=== PATIENT | male | born 1995 | race Hispanic/Latino ===

== ENCOUNTER 2017-12-24 01:11 | Inpatient (IN) | payer OTHER ==
[2017-12-24] MEDS ORDERED: Sodium Chloride 0.9% 1,000 ML IV ONE ×2 (01:38→03:37)
--- NOTE | 2017-12-24 01:38 | C.PDOC ---
History Of Present Illness The patient is brought to the ED by ambulance for evaluation after he sustained an injury while at work prior to arrival. Patient states a broken metal lamp fell onto his leg and he sustained a laceration to the medial aspect of his right ankle. Patient denies head injury, loss of consciousness or any other injuries at this time. Time Seen by Provider: 12/24/17 01:26 Chief Complaint (Nursing): Abnormal Skin Integrity History Per: Patient, EMS History/Exam Limitations: no limitations Onset/Duration Of Symptoms: Hrs Current Symptoms Are (Timing): Still Present Location Of Injury: Right: Ankle Quality Of Symptoms: Painful Severity: Moderate Pain Scale Rating Of: 5 Recent travel outside of the [place]: No Additional History Per: Patient Past Medical History Reviewed: Historical Data, Nursing Documentation, Vital Signs Vital Signs: Last Vital Signs Temp 99.2 F 12/24/17 01:21 Pulse 88 12/24/17 01:21 Resp 20 12/24/17 01:21 BP 123/75 12/24/17 01:21 Pulse Ox 99 12/24/17 01:56 - Medical History PMH: No Chronic Diseases Surgical History: No Surg Hx Family History: States: Unknown Family Hx - Social History Hx Alcohol Use: No Hx Substance Use: No - Immunization History Hx Tetanus Toxoid Vaccination: Yes Hx Influenza Vaccination: No Hx Pneumococcal Vaccination: No Review Of Systems Constitutional: Negative for: Fever, Chills Musculoskeletal: Positive for: Foot Pain, Other (right ankle pain , laceration) Skin: Positive for: Other (laceration to right ankle ). Negative for: Rash, Lesions, Jaundice, Bruising Neurological: Negative for: Weakness, Numbness, Other (head injury, LOC ) Physical Exam - Physical Exam Appears: Non-toxic Skin: Warm, Dry, Other (5cm large open laceration to medial aspect of right ankle. Evidence of partial cut to achile's tendon with small pulsatile bleeding noted ) Extremity: Normal ROM (toes ), Tenderness, Capillary Refill (less than 2 seconds ), No Deformity, Other (5 cm deep laceration, partial lac achile's tendon) Pulses: Left Dorsalis Pedis: Normal, Right Dorsalis Pedis: Normal Neurological/Psych: Oriented x3 Gait: Unable To Assess ED Course And Treatment - Laboratory Results Result Diagrams: 12/24/17 01:53 12/24/17 01:53 O2 Sat by Pulse Oximetry: 99 (on RA) Pulse Ox Interpretation: Normal Progress Note: Bloodwork ordered. Ancef IVPB and IV Fluids given. spoke with podiatry resident. will see the pt in the ed. resident at bedside, will suture, Disposition Discussed With : Majo Ortega Comment: acceptd the pt on his service and took over the care at 3:30 AM Doctor Will See Patient In The: ED Counseled Patient/Family Regarding: Studies Performed, Diagnosis - Disposition Referrals: Non [facility] Provider, [Primary Care Provider] - Disposition: HOSPITALIZED Disposition Time: 01:38 Condition: FAIR Forms: [employer] (Yakut) - Clinical Impression Clinical Impression: Laceration of ankle, Laceration of Achilles tendon - Scribe Statement The provider has reviewed the documentation as recorded by the Scribe (Peace Catalan) Provider Attestation: All medical record entries made by the Scribe were at my direction and personally dictated by me. I have reviewed the chart and agree that the record accurately reflects my personal performance of the history, physical exam, medical decision making, and the department course for this patient. I have also personally directed, reviewed, and agree with the discharge instructions and disposition.
[2017-12-24 01:58] LABS: BASO # 0.1 K/uL (0.0-0.2); BASO % 0.8 % (0.0-2.0); EOS % 0.4 % (0.0-4.0); HEMOGLOBIN 14.9 g/dL (12.0-18.0); LYMPH # 2.3 K/uL (1.0-4.3); LYMPH % 20.1 % (20.0-40.0); MEAN CELL VOLUME 87.9 fL (80.0-94.0); MEAN CORPUSCULAR HEMOGLOBIN 29.7 pg (27.0-31.0); MEAN CORPUSCULAR HGB CONC 33.8 g/dL (33.0-37.0); MEAN PLATELET VOLUME 10.9 fL (7.2-11.7); MONO % 9.3 % (0.0-10.0); NEUT # 7.8 K/uL (1.8-7.0); NEUT % 69.4 % (50.0-75.0); RBC 5.01 Mil/uL (4.40-5.90); RED CELL DISTRIBUTION WIDTH 14.5 % (11.5-14.5); WHITE BLOOD COUNT 11.2 K/uL (4.8-10.8)
[2017-12-24] MEDS ORDERED: ceFAZolin IV 2 gm in Dextrose 2 GM/50 ML BAG IVPB ONE (02:00)
[2017-12-24] MEDS ORDERED: Oxycodone/Acetaminophen 5/325 mg Tab ONE (02:29)
[2017-12-24] MEDS ORDERED: Lidocaine 2% MPF (5 ml) Inj ONE (02:30)
[2017-12-24] MEDS ORDERED: Oxycodone/Acetaminophen 5/325 mg Tab PO ONE (02:31)
[2017-12-24 03:01] LABS: BLOOD UREA NITROGEN 17 mg/dL (9-20); CALCIUM 9.3 mg/dl (8.6-10.4); GFR AFRICAN-AMERICAN > 60; GFR NON-AFRICAN AMERICAN > 60
[2017-12-24] MEDS ORDERED: Lidocaine 1%/Epinephrine 1:100000 30 ml vial IJ ONE (03:08)
[2017-12-24] MEDS ORDERED: Morphine 4 MG/ML VIAL ONE (03:23)
[2017-12-24] MEDS ORDERED: Sodium Chloride 0.9% 1,000 ML ONE (03:27)
[2017-12-24 03:45] LABS: HEMOGLOBIN 13.1 g/dL (12.0-18.0)
--- NOTE | 2017-12-24 04:25 | CP.PCM.CON ---
History of Present Illness - History of Present Illness History of Present Illness: Podiatry Consult Note - Dr. Ortega 22 year old male patient unremarkable PMHx seen and examined in ED for right leg laceration. Friend present at bedside. Patient states approximately 2 hours ago while at work, a large light fixture fell onto his leg, sustaining a laceration to the medial aspect of his right lower leg/ankle. (-)LOC. Patient states he has been actively bleeding since injury. Patient denies any other injuries at this time. Vaccines up to date per patient. Denies N/V/F/D/C/SOB/DAVIS/ dizziness. 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 Review of Systems - Review of Systems All systems: reviewed and no additional remarkable complaints except (as per HPI ) Past Patient History - Infectious Disease Hx of Infectious Diseases: None - Past Social History Smoking Status: Light Smoker < 10 Cigarettes Daily - PSYCHIATRIC Hx Substance Use: No - SURGICAL HISTORY Hx Surgeries: No - ANESTHESIA Hx Anesthesia: No Meds Allergies/Adverse Reactions: Allergies Allergy/AdvReac Type Severity Reaction Status Date / Time No Known Allergies Allergy Unverified 12/24/17 01:20 - Medications Medications: Current Medications Sodium Chloride (Sodium Chloride 0.9%) 1,000 mls @ 1,000 mls/hr IV .Q1H ONE Stop: 12/24/17 04:36 Last Admin: 12/24/17 03:30 Dose: 1,000 mls/hr Physical Exam - Constitutional Appears: Well, Non-toxic, No Acute Distress - Extremities Exam Additional comments: RLE focused physical exam VASC: DP and PT pulses palpable 2/4. CFT <3 seconds to digits x5. Temperature gradient warm to warm. No edema noted. NEURO: Gross and protective sensation intact. DERM: Laceration noted to medial aspect of lower leg/ankle measuring approximately 5cm x 2cm x 1cm extending down to muscle; active arteriolar bleeding present. Partially exposed Achilles tendon medially ORTHO: Pain on palpation noted periwound. Digital ROM present. Muscle strength 4 /5 for all dorsiflexors, plantarflexors, inverters, and everters. Negative Justice test. - Neurological Exam Neurological exam: Alert, Oriented x3 - Psychiatric Exam Psychiatric exam: Normal Affect, Normal Mood Results - Vital Signs Recent Vital Signs: Last Vital Signs Temp 99.2 F 12/24/17 01:21 Pulse 90 12/24/17 03:45 Resp 18 12/24/17 03:45 BP 105/64 12/24/17 03:45 Pulse Ox 99 12/24/17 03:31 - Labs Result Diagrams: 12/24/17 03:38 12/24/17 01:53 Labs: Laboratory Results - last 24 hr 12/24/17 12/24/17 12/24/17 01:53 01:53 03:38 WBC 11.2 H RBC 5.01 Hgb 14.9 13.1 Hct 44.1 37.8 MCV 87.9 MCH 29.7 MCHC 33.8 RDW 14.5 Plt Count 162 MPV 10.9 Neut % (Auto) 69.4 Lymph % (Auto) 20.1 Wise % (Auto) 9.3 Eos % (Auto) 0.4 Baso % (Auto) 0.8 Neut # (Auto) 7.8 H Lymph # (Auto) 2.3 Wise # (Auto) 1.0 H Eos # (Auto) 0.0 Baso # (Auto) 0.1 Sodium 141 Potassium 3.8 Chloride 105 Carbon Dioxide 27 Anion Gap 13 BUN 17 Creatinine 1.1 Est GFR ( Amer) > 60 Est GFR (Non-Af Amer) > 60 Random Glucose 92 Calcium 9.3 Assessment & Plan - Assessment and Plan (Free Text) Assessment: 22M with right medial leg laceration secondary to trauma Plan: Patient seen and evaluated Discussed with attending, Dr. Ortega H/h 14.9/44.1 Laceration flushed with copious amounts of betadine/saline solution Gelfoam used for hemostasis; bleeders ligated/cauterized as necessary Laceration closed using 3-0 vicryl, 4-0 vicryl, 3-0 prolene without incident Right leg dressed with xeroform, DSD Post-procedure H/h 13.1/37.8 Patient will be admitted to Med/Surg for obs -Continue abx -Pain control: Tylenol 650mg PO, Percocet 1 tab PO, Morphine 1g IV -Regular diet -RLE MRI -WB status: NWB RLE with crutches Podiatry will continue to follow
--- NOTE | 2017-12-24 09:59 | MRI ---
MRI right ankle History: Achilles tendon injury. Laceration. Comparison: None available. Technique: Multi-echo multiplanar sequences were performed through the right ankle without the use of intravenous contrast. Findings: Complete rupture of the Achilles tendon approximately 4.3 centimeters from its attachment on the posterior calcaneus. Proximal tendon lies approximately 8.7 centimeters from its attachment on the posterior calcaneus. Tendon gap between the proximal and distal tendon fragments measures 4.6 centimeters. Fluid and edema within the tendon gap. Plantar fascia is preserved. Sinus tarsi is preserved. Small ankle joint effusion. Scattered patchy areas of mild reactive bone marrow edema within the fibula, calcaneus, and navicular bone. Anterior extensor tendons are preserved. Medial flexor tendons are preserved. Flattening of the peroneus brevis tendon at the level of the ankle mortise suggestive for a partial split tear. Anterior and posterior tibiofibular ligaments appear grossly preserved. Moderate tenosynovitis of the flexor hallucis longus tendon sheath at the ankle mortise. Low-grade sprain of the deep fibers of the deltoid ligament. Impression: 1. Complete rupture of the Achilles tendon approximately 4.3 centimeters from its attachment on the posterior calcaneus. Proximal tendon lies approximately 8.7 centimeters from its attachment on the posterior calcaneus. Tendon gap between the proximal and distal tendon fragments measures 4.6 centimeters. Fluid and edema within the tendon gap. 2. Small ankle joint effusion. 3. Scattered patchy areas of mild reactive bone marrow edema within the fibula, calcaneus, and navicular bone. 4. Flattening of the peroneus brevis tendon at the level of the ankle mortise suggestive for a partial split tear. 5. Moderate tenosynovitis of the flexor hallucis longus tendon sheath at the ankle mortise. 6. Low-grade sprain of the deep fibers of the deltoid ligament.
[2017-12-24] MEDS: ceFAZolin IV 1 gm in Dextrose 1 GM/50 ML BAG IVPB SCH ×2 (10:51→17:50)
--- NOTE | 2017-12-24 14:42 | CP.PCM.HP ---
<Rand Rayne BASSETT - Last Filed: 12/24/17 15:13> History of Present Illness - History of Present Illness History of Present Illness: CC: "A lamp broke and fell on my foot" HPI: Patient is a 22 year old male patient who denies past medical history who was brought in by ambulance for an acute right foot/ankle injury. 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 The patient tried to catch it but the lamp struck his foot/medial ankle causing a laceration on impact. There was no loss of consciousness or head trauma. Patient reports he was told he looked pale at the time of injury. At the time of the incident, the pain was described as a 1/ 10 and has been "achy" since. This feeling starts at the back of the ankle and extends upward to the base of the calf muscle. Patient denies numbness and tingling in his right foot. Patient received morphine at the hospital and is controlling his pain. Patient reports last tetanus was 6-7 months ago given at an urgent care center. Patient was seen by podiatry team in ER for laceration repair of bleeding vessels at laceration site. 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 absent: Numbness, Tingling Additional comments: Aching pain right leg. - Integumentary Integumentary: Bleeding Lesions (right ankle laceration) - Neurological Neurological: absent: Dizziness, Syncope, Weakness - Endocrine Endocrine: absent: Fatigue Past Patient History - Infectious Disease Hx of Infectious Diseases: None - Past Medical History & Family History Past Medical History?: No - Past Social History Smoking Status: Light Smoker < 10 Cigarettes Daily - MUSCULOSKELETAL/RHEUMATOLOGICAL Hx Falls: No - PSYCHIATRIC Hx Substance Use: No - SURGICAL HISTORY Hx Surgeries: No - ANESTHESIA Hx Anesthesia: No Meds Allergies/Adverse Reactions: Allergies Allergy/AdvReac Type Severity Reaction Status Date / Time No Known Allergies Allergy Unverified 12/24/17 01:20 Physical Exam - Constitutional Appears: Well - Head Exam Head Exam: NORMAL INSPECTION - Eye Exam Eye Exam: EOMI, Normal appearance - ENT Exam ENT Exam: Mucous Membranes Moist - Respiratory Exam Respiratory Exam: Clear to Auscultation Bilateral, NORMAL BREATHING PATTERN - Cardiovascular Exam Cardiovascular Exam: +S1, +S2. absent: Diastolic murmur, Systolic Murmur - GI/Abdominal Exam GI & Abdominal Exam: Normal Bowel Sounds, Soft. absent: Tenderness - Extremities Exam Additional comments: Right foot splinted by podiatry Sensation intact in toes Normal ROM and color in toes intact sensation to proximal portion of right lower extremity - Neurological Exam Neurological exam: Alert - Psychiatric Exam Psychiatric exam: Normal Affect, Normal Mood - Skin Skin Exam: Dry, Normal Color, Warm Results - Vital Signs Recent Vital Signs: Last Vital Signs Temp 97.9 F 12/24/17 08:18 Pulse 65 12/24/17 08:18 Resp 20 12/24/17 08:18 BP 112/63 12/24/17 08:18 Pulse Ox 98 12/24/17 08:18 - Labs Result Diagrams: 12/24/17 03:38 12/24/17 01:53 Labs: Laboratory Results - last 24 hr 12/24/17 12/24/17 12/24/17 01:53 01:53 03:38 WBC 11.2 H RBC 5.01 Hgb 14.9 13.1 Hct 44.1 37.8 MCV 87.9 MCH 29.7 MCHC 33.8 RDW 14.5 Plt Count 162 MPV 10.9 Neut % (Auto) 69.4 Lymph % (Auto) 20.1 Hamblen % (Auto) 9.3 Eos % (Auto) 0.4 Baso % (Auto) 0.8 Neut # (Auto) 7.8 H Lymph # (Auto) 2.3 Hamblen # (Auto) 1.0 H Eos # (Auto) 0.0 Baso # (Auto) 0.1 Sodium 141 Potassium 3.8 Chloride 105 Carbon Dioxide 27 Anion Gap 13 BUN 17 Creatinine 1.1 Est GFR ( Amer) > 60 Est GFR (Non-Af Amer) > 60 Random Glucose 92 Calcium 9.3 Assessment & Plan - Assessment and Plan (Free Text) Assessment: 22 year old scott with right ankle laceration injury, complete right achilles rupture Right achilles tendon rupture Dr. Ortega, podiatry consulted- help appreciated Patient has right leg splinted by podiatry team Patient to go to OR on Wednesday 12/27 for tendon repair Patient to be non weight bearing to right lower extremity Preop studies ordered including coags, CXR, and EKG OR risk stratification pending results MRI right ankle (12/24/17): complete rupture of achilles tendon with tendon gap between proximal and distal tendon fragments measures 4.6cm. Fluid and edema with in tendon gap. Small ankle effusion. Flattenong of peroneus brevis tendon at level of ankle mortise suggestive for partial split tear. Low grade sprain of deep fibers of deltoid ligament. (see full report) Tylenol 650mg q6 for mild pain, percocet 5/325mg for moderate pain, Morphine 1mg IV q4 for severe pain Right ankle laceration laceration repaired by podiatry team in ER 12/24/17 continue cefazolin 1g q8 IVPB per podiatry team patient reports last tetanus shot 6-7 months ago Prophylactic measures lovenox 40mg sc daily zofran 1mg IVP q6 prn PT for crutch training <Lois Casey - Last Filed: 12/24/17 17:16> Results - Vital Signs Recent Vital Signs: Last Vital Signs Temp 98.7 F 12/24/17 16:02 Pulse 68 12/24/17 16:02 Resp 17 12/24/17 16:02 BP 121/69 12/24/17 16:02 Pulse Ox 98 12/24/17 16:02 - Labs Result Diagrams: 12/24/17 16:53 12/24/17 01:53 Labs: Laboratory Results - last 24 hr 12/24/17 12/24/17 12/24/17 01:53 01:53 03:38 WBC 11.2 H RBC 5.01 Hgb 14.9 13.1 Hct 44.1 37.8 MCV 87.9 MCH 29.7 MCHC 33.8 RDW 14.5 Plt Count 162 MPV 10.9 Neut % (Auto) 69.4 Lymph % (Auto) 20.1 Hamblen % (Auto) 9.3 Eos % (Auto) 0.4 Baso % (Auto) 0.8 Neut # (Auto) 7.8 H Lymph # (Auto) 2.3 Hamblen # (Auto) 1.0 H Eos # (Auto) 0.0 Baso # (Auto) 0.1 Sodium 141 Potassium 3.8 Chloride 105 Carbon Dioxide 27 Anion Gap 13 BUN 17 Creatinine 1.1 Est GFR ( Amer) > 60 Est GFR (Non-Af Amer) > 60 Random Glucose 92 Calcium 9.3 12/24/17 16:53 WBC 10.2 RBC 4.12 L Hgb 12.5 Hct 36.5 MCV 88.5 MCH 30.3 MCHC 34.3 RDW 14.7 H Plt Count 147 MPV 10.7 Neut % (Auto) 67.6 Lymph % (Auto) 24.1 Hamblen % (Auto) 7.3 Eos % (Auto) 0.5 Baso % (Auto) 0.5 Neut # (Auto) 6.9 Lymph # (Auto) 2.4 Hamblen # (Auto) 0.7 Eos # (Auto) 0.0 Baso # (Auto) 0.1 Sodium Potassium Chloride Carbon Dioxide Anion Gap BUN Creatinine Est GFR ( Amer) Est GFR (Non-Af Amer) Random Glucose Calcium Attending/Attestation - Attestation I have personally seen and examined this patient.: Yes I have fully participated in the care of the patient.: Yes I have reviewed all pertinent clinical information: Yes Notes (Text): 22 years old healthy male admitted for Achilles tendon rupture and right ankle laceration. Patient was seen with the resident. I agree with the documentation of the resident's assessment and the plan patient is going for surgery on wednesday
--- NOTE | 2017-12-24 15:31 | CP.PCM.PN ---
Subjective - Date & Time of Evaluation Date of Evaluation: 12/24/17 Time of Evaluation: 15:27 - Subjective Subjective: Podiatry Progress note: Dr. Ortega 22 year old male patient was evaluated at bedside for right Beaverdam's tendon rupture. Patient is AAOx3 and appears to be resting comfortably on the bed. Denies of any acute overnight events. Reports that the pain is well controlled. Denies of having recent F/N/V/C/SOB/CP/headache. No other pedal complains at this time. Objective - Vital Signs/Intake and Output Vital Signs (last 24 hours): Temp Pulse Resp BP Pulse Ox 97.9 F 65 20 112/63 98 12/24/17 08:18 12/24/17 08:18 12/24/17 08:18 12/24/17 08:18 12/24/17 14:00 Intake and Output: 12/24/17 12/24/17 06:59 18:59 Intake Total 470 Balance 470 - Medications Medications: Current Medications Acetaminophen (Tylenol 325mg Tab) 650 mg PO Q6 PRN PRN Reason: Pain, Mild (1-3) Enoxaparin Sodium (Lovenox) 40 mg SC DAILY ALMA DELIA Cefazolin Sodium/Dextrose (Ancef Iv 1 Gm Duplex) 1 gm in 50 mls @ 100 mls/hr IVPB Q8H [facility] PRN Reason: Protocol Last Admin: 12/24/17 10:51 Dose: 100 mls/hr Morphine Sulfate (Morphine) 1 mg IVP Q4H PRN PRN Reason: Pain, severe (8-10) Last Admin: 12/24/17 14:37 Dose: 1 mg Ondansetron HCl (Zofran Inj) 4 mg IVP Q6 PRN PRN Reason: Nausea/Vomiting Oxycodone/Acetaminophen (Percocet 5/325 Mg Tab) 1 tab PO Q4 PRN PRN Reason: Pain, moderate (4-7) Stop: 12/27/17 04:36 - Labs Labs: 12/24/17 03:38 12/24/17 01:53 - Constitutional Appears: Well, Non-toxic, No Acute Distress - Extremities Exam Additional comments: RLE focused physical exam VASC: DP and PT pulses palpable 2/4. CFT <3 seconds to digits x5. Temperature gradient warm to warm. No edema noted. NEURO: Gross and protective sensation intact. DERM: Sutures are intact with no dehiscence, no active bleeding, no pitting or non-pitting edema noted, no nadia-wound erythema, no clinical suspicion of active infection ORTHO: Pain on palpation noted periwound. Digital ROM present. Muscle strength 4 /5 for all dorsiflexors, plantarflexors, inverters, and everters. Negative Justice test. - Neurological Exam Neurological Exam: Alert, Awake, Oriented x3 - Psychiatric Exam Psychiatric exam: Normal Affect, Normal Mood Assessment and Plan - Assessment and Plan (Free Text) Assessment: 22 year old male with complete right Beaverdam's tendon rupture secondary to trauma Plan: Patient seen and evaluated Discussed with attending, Dr. Ortega Labs, vitals and charts reviewed - afebrile, no leukocytosis MRI - Complete rupture of the Beaverdam's tendon with gapping measuring approx 4 cm Dressing applied using xeroform, DSD Well padded posterior splint applied to the RLE Patient admitted to the hospital under Dr. Mooney's service -Continue abx -Pain control: Tylenol 650mg PO, Percocet 1 tab PO, Morphine 1g IV -Regular diet -WB status: NWB RLE with crutches CXR, EKG, and pre-op labs ordered Podiatry plans for Raiza's tendon repair on Wednesday (12/27) Patient will require medical optimization Podiatry will continue to follow
[2017-12-24 17:01] LABS: BASO # 0.1 K/uL (0.0-0.2); BASO % 0.5 % (0.0-2.0); EOS % 0.5 % (0.0-4.0); HEMOGLOBIN 12.5 g/dL (12.0-18.0); LYMPH # 2.4 K/uL (1.0-4.3); LYMPH % 24.1 % (20.0-40.0); MEAN CELL VOLUME 88.5 fL (80.0-94.0); MEAN CORPUSCULAR HEMOGLOBIN 30.3 pg (27.0-31.0); MEAN CORPUSCULAR HGB CONC 34.3 g/dL (33.0-37.0); MEAN PLATELET VOLUME 10.7 fL (7.2-11.7); MONO # 0.7 K/uL (0.0-0.8); MONO % 7.3 % (0.0-10.0); NEUT # 6.9 K/uL (1.8-7.0); NEUT % 67.6 % (50.0-75.0); RBC 4.12 Mil/uL (4.40-5.90); RED CELL DISTRIBUTION WIDTH 14.7 % (11.5-14.5); WHITE BLOOD COUNT 10.2 K/uL (4.8-10.8)
[2017-12-24 17:11] LABS: BLOOD UREA NITROGEN 10 mg/dL (9-20); CALCIUM 8.1 mg/dl (8.6-10.4); GFR AFRICAN-AMERICAN > 60; GFR NON-AFRICAN AMERICAN > 60
[2017-12-24 17:12] LABS: INR 1.1; PROTHROMBIN TIME 12.4 SECONDS (9.7-12.2)
--- NOTE | 2017-12-24 17:12 | RAD ---
HISTORY: plan for surgery COMPARISON: No prior. TECHNIQUE: Chest PA and lateral FINDINGS: LUNGS: No active pulmonary disease. PLEURA: No significant pleural effusion identified. No pneumothorax apparent. CARDIOVASCULAR: Normal. OSSEOUS STRUCTURES: No significant abnormalities. VISUALIZED UPPER ABDOMEN: Normal. OTHER FINDINGS: None. IMPRESSION: No active disease.
[2017-12-24] MEDS: Oxycodone/Acetaminophen 5/325 mg Tab PO PRN ×2 (17:15→22:58)
[2017-12-25] MEDS: ceFAZolin IV 1 gm in Dextrose 1 GM/50 ML BAG IVPB SCH ×3 (03:00→20:38)
--- NOTE | 2017-12-25 07:14 | CP.PCM.PN ---
Subjective - Date & Time of Evaluation Date of Evaluation: 12/25/17 Time of Evaluation: 07:11 - Subjective Subjective: Podiatry Progress note for attending Dr. Ortega 22 year old male patient was seen and evaluated at bedside for right Adrian's tendon rupture. Patient is not in acute distress. Patient is AAOx3 and appears to be resting comfortably on the bed. Patient denies of any acute overnight events. Patient states that he is not having pain in his lower extremities. Patient denies of having recent F/N/V/C/SOB/CP/headache. Patient denies other pedal complains at this time. Objective - Vital Signs/Intake and Output Vital Signs (last 24 hours): Temp Pulse Resp BP Pulse Ox 99.5 F 66 20 98/62 L 99 12/25/17 04:43 12/25/17 04:43 12/25/17 04:43 12/25/17 04:43 12/25/17 04:43 - Medications Medications: Current Medications Acetaminophen (Tylenol 325mg Tab) 650 mg PO Q6 PRN PRN Reason: Pain, Mild (1-3) Enoxaparin Sodium (Lovenox) 40 mg SC DAILY [facility]IA Cefazolin Sodium/Dextrose (Ancef Iv 1 Gm Duplex) 1 gm in 50 mls @ 100 mls/hr IVPB Q8H [facility] PRN Reason: Protocol Last Admin: 12/25/17 03:00 Dose: 100 mls/hr Morphine Sulfate (Morphine) 1 mg IVP Q4H PRN PRN Reason: Pain, severe (8-10) Last Admin: 12/24/17 14:37 Dose: 1 mg Ondansetron HCl (Zofran Inj) 4 mg IVP Q6 PRN PRN Reason: Nausea/Vomiting Oxycodone/Acetaminophen (Percocet 5/325 Mg Tab) 1 tab PO Q4 PRN PRN Reason: Pain, moderate (4-7) Stop: 12/27/17 04:36 Last Admin: 12/24/17 22:58 Dose: 1 tab - Labs Labs: 12/24/17 16:53 12/24/17 16:53 PT 12.4 SECONDS (9.7-12.2) H 12/24/17 16:53 INR 1.1 12/24/17 16:53 APTT 28 SECONDS (21-34) 12/24/17 16:53 - Constitutional Appears: Well, Non-toxic, No Acute Distress - Head Exam Head Exam: ATRAUMATIC, NORMOCEPHALIC - Extremities Exam Additional comments: RLE focused physical exam VASC: Cap refill < 3 seconds in all digits NEURO: Gross sensation intact. rest of the examination couldn't be done as the patient right LE is in posterior splint and the splint left intact. - Neurological Exam Neurological Exam: Alert, Awake, Oriented x3 - Psychiatric Exam Psychiatric exam: Normal Affect, Normal Mood Assessment and Plan - Assessment and Plan (Free Text) Assessment: 22 year old male with complete right Achilles's tendon rupture secondary to trauma Plan: Patient seen and evaluated at the bedside Discussed plan in details with attending, Dr. Ortega Labs, vitals and charts reviewed - afebrile, no leukocytosis MRI shows Complete rupture of the Adrian's tendon with gapping measuring approx 4 cm Right Posterior splint left intact. Patient to continue the antibiotic and the pain medication. patient to continue NWB RLE with crutches. To F/U medical preoperative clearance. Chest X-ray was done to the patient. Patient to be followed up in house by the podiatry team
[2017-12-25] MEDS: Oxycodone/Acetaminophen 5/325 mg Tab PO PRN ×2 (08:04→20:18)
[2017-12-25 09:05] LABS: BASO % 0.6 % (0.0-2.0); EOS # 0.1 K/uL (0.0-0.7); EOS % 1.2 % (0.0-4.0); HEMOGLOBIN 12.6 g/dL (12.0-18.0); LYMPH % 27.2 % (20.0-40.0); MEAN CELL VOLUME 88.8 fL (80.0-94.0); MEAN CORPUSCULAR HEMOGLOBIN 30.7 pg (27.0-31.0); MEAN CORPUSCULAR HGB CONC 34.6 g/dL (33.0-37.0); MEAN PLATELET VOLUME 11.1 fL (7.2-11.7); MONO # 0.8 K/uL (0.0-0.8); MONO % 10.2 % (0.0-10.0); NEUT # 4.5 K/uL (1.8-7.0); NEUT % 60.8 % (50.0-75.0); RBC 4.11 Mil/uL (4.40-5.90); RED CELL DISTRIBUTION WIDTH 14.1 % (11.5-14.5); WHITE BLOOD COUNT 7.4 K/uL (4.8-10.8)
[2017-12-25 09:14] LABS: ALB/GLOB RATIO 2.2 (1.0-2.1); ALBUMIN 3.8 g/dL (3.5-5.0); ALT/SGPT 33 U/L (21-72); AST/SGOT 33 U/L (17-59); BLOOD UREA NITROGEN 9 mg/dL (9-20); CALCIUM 8.8 mg/dl (8.6-10.4); GFR AFRICAN-AMERICAN > 60; GFR NON-AFRICAN AMERICAN > 60
[2017-12-25] MEDS: Enoxaparin 40 mg Syringe SC SCH (09:16)
--- NOTE | 2017-12-25 15:30 | CP.PCM.PN ---
<Kitty Martinezedwardcasie - Last Filed: 12/25/17 15:45> Subjective - Date & Time of Evaluation Date of Evaluation: 12/25/17 Time of Evaluation: 10:20 - Subjective Subjective: PGY 3 Medicine progress note- Dr. Casey's service Patient seen and examined in no acute distress. Patient admits to some tenderness in the posterior region of his right ankle. Patient reiterated the history of events- stating that he injured himself when a sharp metal object fell and cut into his Achilles region. Patient admits to pain with range of motion of affected foot. Patient denies headaches, subjective fevers or chills, nausea, vomiting, chest pain or palpitations at this time. Objective - Vital Signs/Intake and Output Vital Signs (last 24 hours): Temp Pulse Resp BP Pulse Ox 97.3 F L 63 20 110/69 98 12/25/17 07:00 12/25/17 07:00 12/25/17 07:00 12/25/17 07:00 12/25/17 07:00 - Medications Medications: Current Medications Acetaminophen (Tylenol 325mg Tab) 650 mg PO Q6 PRN PRN Reason: Pain, Mild (1-3) Enoxaparin Sodium (Lovenox) 40 mg SC DAILY [facility] Last Admin: 12/25/17 09:16 Dose: 40 mg Cefazolin Sodium/Dextrose (Ancef Iv 1 Gm Duplex) 1 gm in 50 mls @ 100 mls/hr IVPB Q8H [facility] PRN Reason: Protocol Last Admin: 12/25/17 10:14 Dose: 100 mls/hr Morphine Sulfate (Morphine) 1 mg IVP Q4H PRN PRN Reason: Pain, severe (8-10) Last Admin: 12/24/17 14:37 Dose: 1 mg Ondansetron HCl (Zofran Inj) 4 mg IVP Q6 PRN PRN Reason: Nausea/Vomiting Oxycodone/Acetaminophen (Percocet 5/325 Mg Tab) 1 tab PO Q4 PRN PRN Reason: Pain, moderate (4-7) Stop: 12/27/17 04:36 Last Admin: 12/25/17 08:04 Dose: 1 tab - Labs Labs: 12/25/17 08:51 12/25/17 08:51 PT 12.4 SECONDS (9.7-12.2) H 12/24/17 16:53 INR 1.1 12/24/17 16:53 APTT 28 SECONDS (21-34) 12/24/17 16:53 - Constitutional Appears: Non-toxic, No Acute Distress - Head Exam Head Exam: ATRAUMATIC, NORMAL INSPECTION, NORMOCEPHALIC - Eye Exam Eye Exam: EOMI, Normal appearance Pupil Exam: NORMAL ACCOMODATION - ENT Exam ENT Exam: Mucous Membranes Moist - Neck Exam Neck Exam: Full ROM - Respiratory Exam Respiratory Exam: NORMAL BREATHING PATTERN - Cardiovascular Exam Cardiovascular Exam: +S1, +S2 - GI/Abdominal Exam GI & Abdominal Exam: Soft, Normal Bowel Sounds - Extremities Exam Extremities Exam: Tenderness. absent: Full ROM, Pedal Edema Additional comments: limited range of motion of right foot. limited plantar flexion; sensation intact to temperature, soft touch - Back Exam Back Exam: Full ROM - Neurological Exam Neurological Exam: Alert, Awake, Oriented x3 - Psychiatric Exam Psychiatric exam: Normal Affect, Normal Mood - Skin Skin Exam: Normal Color, Warm Assessment and Plan - Assessment and Plan (Free Text) Assessment: 22 year old male with right ankle laceration injury, complete right Achilles rupture Right Achilles tendon rupture Dr. Ortega, Community Organization Worker consulted- F/U recommendations Right leg splinted by podiatry team Patient to go to OR on Wednesday 12/27 for tendon repair Patient-non weight bearing with right lower extremity Preoperative studies: CXR- no active disease. EKG- NSR with premature supraventricular complexes. Repeat EKG. INR 1.1 MRI right ankle (12/24/17): complete rupture of Achilles tendon with tendon gap between proximal and distal tendon fragments measures 4.6cm. Fluid and edema with in tendon gap. Small ankle effusion. Flattening of peroneus brevis tendon at level of ankle mortise suggestive for partial split tear. Low grade sprain of deep fibers of deltoid ligament. (see full report) Tylenol 650mg q6 for mild pain, Percocet 5/325mg for moderate pain, Morphine 1mg IV q4 for severe pain Right ankle laceration Laceration repaired by podiatry team in ER 12/24/17 Continue cefazolin 1g q8 IVPB per podiatry team Patient reports last tetanus shot 6-7 months ago Prophylactic measures Lovenox 40mg sc daily Zofran 1mg IVP q6 prn Physical therapy for crutch training GI prophylaxis not currently indicated <Lois Casey - Last Filed: 12/26/17 07:17> Objective - Vital Signs/Intake and Output Vital Signs (last 24 hours): Temp Pulse Resp BP Pulse Ox 97.8 F 95 H 20 133/79 97 12/25/17 23:50 12/25/17 23:50 12/25/17 23:50 12/25/17 23:50 12/25/17 23:50 - Medications Medications: Current Medications Acetaminophen (Tylenol 325mg Tab) 650 mg PO Q6 PRN PRN Reason: Pain, Mild (1-3) Enoxaparin Sodium (Lovenox) 40 mg SC DAILY [facility] Last Admin: 12/25/17 09:16 Dose: 40 mg Cefazolin Sodium/Dextrose (Ancef Iv 1 Gm Duplex) 1 gm in 50 mls @ 100 mls/hr IVPB Q8H [facility] PRN Reason: Protocol Last Admin: 12/26/17 01:58 Dose: 100 mls/hr Morphine Sulfate (Morphine) 1 mg IVP Q4H PRN PRN Reason: Pain, severe (8-10) Last Admin: 12/24/17 14:37 Dose: 1 mg Ondansetron HCl (Zofran Inj) 4 mg IVP Q6 PRN PRN Reason: Nausea/Vomiting Oxycodone/Acetaminophen (Percocet 5/325 Mg Tab) 1 tab PO Q4 PRN PRN Reason: Pain, moderate (4-7) Stop: 12/27/17 04:36 Last Admin: 12/25/17 20:18 Dose: 1 tab - Labs Labs: 12/25/17 08:51 12/25/17 08:51 PT 12.4 SECONDS (9.7-12.2) H 12/24/17 16:53 INR 1.1 12/24/17 16:53 APTT 28 SECONDS (21-34) 12/24/17 16:53 Attending/Attestation - Attestation I have personally seen and examined this patient.: Yes I have fully participated in the care of the patient.: Yes I have reviewed all pertinent clinical information, including history, physical exam and plan: Yes Notes (Text): Seen and examined with the resident. He has no complain,His ankle is covered with dressing and splint .His toes are pink,intact senation. Right Achilles's tendon rupture secondary to trauma [place],NWB as per podiatry going for surgery on Wednesday Pt is a 22 years old healthy male ,has no fever,no leukocytosis,chest x ray clear,EKG shows premature supraventricular complexes.Mostly its benign. Can be due to stress .I will repeat his EKG
[2017-12-26] MEDS: ceFAZolin IV 1 gm in Dextrose 1 GM/50 ML BAG IVPB SCH ×3 (01:58→18:26)
--- NOTE | 2017-12-26 07:49 | CP.PCM.PN ---
Subjective - Date & Time of Evaluation Date of Evaluation: 12/26/17 Time of Evaluation: 07:46 - Subjective Subjective: Podiatry Progress note for attending Dr. Ortega 22 year old male patient was seen and evaluated at bedside for right Achilles tendon rupture. Patient is AAOx3 and is not in acute distress.Patient appears to be resting comfortably on the bed. Patient denies of any acute overnight events. Patient states that his pain is well controlled by medications. Patient denies any recent F/N/V/C/SOB/CP/headache. Patient denies other pedal complains at this time. Objective - Vital Signs/Intake and Output Vital Signs (last 24 hours): Temp Pulse Resp BP Pulse Ox 97.8 F 95 H 20 133/79 97 12/25/17 23:50 12/25/17 23:50 12/25/17 23:50 12/25/17 23:50 12/25/17 23:50 - Medications Medications: Current Medications Acetaminophen (Tylenol 325mg Tab) 650 mg PO Q6 PRN PRN Reason: Pain, Mild (1-3) Enoxaparin Sodium (Lovenox) 40 mg SC DAILY [facility] Last Admin: 12/25/17 09:16 Dose: 40 mg Cefazolin Sodium/Dextrose (Ancef Iv 1 Gm Duplex) 1 gm in 50 mls @ 100 mls/hr IVPB Q8H [facility] PRN Reason: Protocol Last Admin: 12/26/17 01:58 Dose: 100 mls/hr Morphine Sulfate (Morphine) 1 mg IVP Q4H PRN PRN Reason: Pain, severe (8-10) Last Admin: 12/24/17 14:37 Dose: 1 mg Ondansetron HCl (Zofran Inj) 4 mg IVP Q6 PRN PRN Reason: Nausea/Vomiting Oxycodone/Acetaminophen (Percocet 5/325 Mg Tab) 1 tab PO Q4 PRN PRN Reason: Pain, moderate (4-7) Stop: 12/27/17 04:36 Last Admin: 12/25/17 20:18 Dose: 1 tab - Labs Labs: 12/25/17 08:51 12/25/17 08:51 PT 12.4 SECONDS (9.7-12.2) H 12/24/17 16:53 INR 1.1 12/24/17 16:53 APTT 28 SECONDS (21-34) 12/24/17 16:53 - Constitutional Appears: Well, Non-toxic, No Acute Distress - Head Exam Head Exam: ATRAUMATIC, NORMOCEPHALIC - Extremities Exam Additional comments: RLE focused physical exam VASC: Cap refill < 3 seconds in all digits NEURO: Gross sensation intact. rest of the examination couldn't be done as the patient right LE is in posterior splint and the splint left intact. - Neurological Exam Neurological Exam: Alert, Awake, Oriented x3 - Psychiatric Exam Psychiatric exam: Normal Affect, Normal Mood Assessment and Plan - Assessment and Plan (Free Text) Assessment: 22 year old male with complete right Achilles's tendon rupture secondary to trauma Plan: Patient seen and evaluated at the bedside Discussed plan in details with attending, Dr. Ortega Labs, vitals and charts reviewed - afebrile, no leukocytosis MRI shows Complete rupture of the Achilles tendon with gapping measuring approximately 4 cm Right Posterior splint left intact. Patient to continue the antibiotic and the pain medication. patient to continue NWB RLE with crutches. To F/U medical preoperative clearance. Chest X-ray was done to the patient. Patient to be followed up in house by the podiatry team
[2017-12-26 08:19] LABS: BASO % 0.8 % (0.0-2.0); EOS # 0.1 K/uL (0.0-0.7); EOS % 1.9 % (0.0-4.0); HEMOGLOBIN 12.5 g/dL (12.0-18.0); LYMPH # 1.6 K/uL (1.0-4.3); LYMPH % 28.6 % (20.0-40.0); MEAN CELL VOLUME 88.1 fL (80.0-94.0); MEAN CORPUSCULAR HEMOGLOBIN 30.8 pg (27.0-31.0); MEAN CORPUSCULAR HGB CONC 34.9 g/dL (33.0-37.0); MEAN PLATELET VOLUME 10.8 fL (7.2-11.7); MONO # 0.4 K/uL (0.0-0.8); MONO % 7.5 % (0.0-10.0); NEUT # 3.5 K/uL (1.8-7.0); NEUT % 61.2 % (50.0-75.0); NRBC % 0.1 % (0.0-2.0); RBC 4.07 Mil/uL (4.40-5.90); RED CELL DISTRIBUTION WIDTH 14.3 % (11.5-14.5); WHITE BLOOD COUNT 5.8 K/uL (4.8-10.8)
[2017-12-26 08:39] LABS: ALB/GLOB RATIO 2.1 (1.0-2.1); ALBUMIN 3.8 g/dL (3.5-5.0); ALT/SGPT 25 U/L (21-72); AST/SGOT 32 U/L (17-59); BLOOD UREA NITROGEN 8 mg/dL (9-20); CALCIUM 8.8 mg/dl (8.6-10.4); GFR AFRICAN-AMERICAN > 60; GFR NON-AFRICAN AMERICAN > 60
[2017-12-26] MEDS: Enoxaparin 40 mg Syringe SC SCH (09:36)
--- NOTE | 2017-12-26 14:31 | CP.PCM.PN ---
Subjective - Date & Time of Evaluation Date of Evaluation: 12/26/17 Time of Evaluation: 09:22 - Subjective Subjective: PGY 3 Med Progress Note- Dr. Casey's service Patient seen and examined in no acute distress. When asked about any prior cardiac history, patient denied. Patient states that he does smoke from tiem to time. He currently smokes 5-6 cigarettes at a time. He states that he has smoked upwards of a pack for a day in the past off and on. He has been smoking for approximately 5 years. He denies subjective fevers or chills, dyspnea, chest pain, palpitations, headaches, nausea, vomiting, diarrhea or constipation at this time. Objective - Vital Signs/Intake and Output Vital Signs (last 24 hours): Temp Pulse Resp BP Pulse Ox 97.8 F 61 20 117/71 98 12/26/17 07:00 12/26/17 07:00 12/26/17 07:00 12/26/17 07:00 12/26/17 07:00 - Medications Medications: Current Medications Acetaminophen (Tylenol 325mg Tab) 650 mg PO Q6 PRN PRN Reason: Pain, Mild (1-3) Last Admin: 12/26/17 12:13 Dose: 650 mg Enoxaparin Sodium (Lovenox) 40 mg SC DAILY [facility] Last Admin: 12/26/17 09:36 Dose: 40 mg Cefazolin Sodium/Dextrose (Ancef Iv 1 Gm Duplex) 1 gm in 50 mls @ 100 mls/hr IVPB Q8H [facility] PRN Reason: Protocol Last Admin: 12/26/17 09:36 Dose: 100 mls/hr Morphine Sulfate (Morphine) 1 mg IVP Q4H PRN PRN Reason: Pain, severe (8-10) Last Admin: 12/24/17 14:37 Dose: 1 mg Ondansetron HCl (Zofran Inj) 4 mg IVP Q6 PRN PRN Reason: Nausea/Vomiting Oxycodone/Acetaminophen (Percocet 5/325 Mg Tab) 1 tab PO Q4 PRN PRN Reason: Pain, moderate (4-7) Stop: 12/27/17 04:36 Last Admin: 12/25/17 20:18 Dose: 1 tab - Labs Labs: 12/26/17 08:07 12/26/17 08:07 PT 12.4 SECONDS (9.7-12.2) H 12/24/17 16:53 INR 1.1 12/24/17 16:53 APTT 28 SECONDS (21-34) 12/24/17 16:53 - Constitutional Appears: Non-toxic, No Acute Distress - Head Exam Head Exam: ATRAUMATIC, NORMAL INSPECTION - Eye Exam Eye Exam: EOMI, Normal appearance, PERRL Pupil Exam: NORMAL ACCOMODATION, PERRL - ENT Exam ENT Exam: Mucous Membranes Moist - Neck Exam Neck Exam: Full ROM - Respiratory Exam Respiratory Exam: NORMAL BREATHING PATTERN. absent: Wheezes - Cardiovascular Exam Cardiovascular Exam: REGULAR RHYTHM, +S1, +S2 - GI/Abdominal Exam GI & Abdominal Exam: Soft, Normal Bowel Sounds - Extremities Exam Extremities Exam: Normal Capillary Refill. absent: Full ROM Additional comments: limited range of motion of right foot. limited plantar flexion; sensation intact to hot and cold touch, soft touch - Back Exam Back Exam: Full ROM - Neurological Exam Neurological Exam: Alert, Awake, Oriented x3 - Psychiatric Exam Psychiatric exam: Normal Affect, Normal Mood - Skin Skin Exam: Dry, Warm Assessment and Plan - Assessment and Plan (Free Text) Assessment: 22 year old male with right ankle laceration injury, complete right Achilles rupture Right Achilles tendon rupture Dr. Ortega, Material Handler Loader consulted- F/U recommendations Right leg splinted by podiatry team Patient to go to OR on Wednesday 12/27 for tendon repair Patient-non weight bearing with right lower extremity Preoperative studies: CXR- no active disease. EKG- NSR with premature supraventricular complexes. Repeat EKG showed sinus bradycardia with occasional supraventricular complexes noted INR 1.1 MRI right ankle (12/24/17): complete rupture of Achilles tendon with tendon gap between proximal and distal tendon fragments measures 4.6cm. Fluid and edema with in tendon gap. Small ankle effusion. Flattening of peroneus brevis tendon at level of ankle mortise suggestive for partial split tear. Low grade sprain of deep fibers of deltoid ligament. (see full report) Tylenol 650mg q6 for mild pain, Percocet 5/325mg for moderate pain, Morphine 1mg IV q4 for severe pain Patient is medically optimized for surgery per Contact Agent Dr. Bui. Physical therapy recommendations- F/U Right ankle laceration Laceration repaired by podiatry team in ER 12/24/17 Continue cefazolin 1g q8 IVPB per podiatry team Patient reports last tetanus shot 6-7 months ago Sinus arrythmia with bradycardia Contact Agent Dr. Bui consulted. Patient with no clinical cardiac history or current cardiac symptoms. Patient has father with HTN but otherwise denies family history of cardiac history. Stable vitals otherwise. Patient is medically optimized for surgical procedure per Cardiology. Patient is encouraged to follow up with a primary medical doctor and Contact Agent for follow up and routine medical management upon discharge. Tobacco use Cessation counseling services Prophylactic measures Lovenox 40mg sc daily - hold past midnight Zofran 1mg IVP q6 prn Physical therapy for crutch training GI prophylaxis not currently indicated
--- NOTE | 2017-12-26 21:04 | CP.PCM.CON ---
History of Present Illness - History of Present Illness History of Present Illness: Reason for consultation: abnormal ekg; pre-op eval CC palpitations; abnormal EKG HPI Patient is a 22 year old male patient who denies past medical history who was brought in by ambulance for an acute right foot/ankle injury. 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 The patient tried to catch it but the lamp struck his foot/medial ankle causing a laceration on impact. There was no loss of consciousness or head trauma. Patient reports he was told he looked pale at the time of injury. At the time of the incident, the pain was described as a 1/ 10 and has been "achy" since. This feeling starts at the back of the ankle and extends upward to the base of the calf muscle. Patient denies numbness and tingling in his right foot. Patient received morphine at the hospital and is controlling his pain. Patient reports last tetanus was 6-7 months ago given at an urgent care center. Patient was seen by podiatry team in ER for laceration repair of bleeding vessels at laceration site. EKG - Sinus arrhythmia Review of Systems - Constitutional Constitutional: absent: As Per HPI, Anorexia, Chills, Daytime Sleepiness, Excessive Sweating, Fatigue, Fever, Frequent Falls, Headache, Increased Appetite , Lethargy, Malaise, Night Sweats, Snoring, Sleep Apnea, Weight Gain, Weight Loss, Weakness, Other - EENT Eyes: absent: As Per HPI, Blind Spots, Blurred Vision, Change in Vision, Decreased Night Vision, Diplopia, Discharge, Dry Eye, Exophthalmos, Floaters, Irritation, Itchy Eyes, Loss of Peripheral Vision, Pain, Photophobia, Requires Corrective Lenses, Sees Flashes, Spots in Vision, Tunnel Vision, Other Visual Disturbances, Loss of Vision, Other Ears: absent: As Per HPI, Decreased Hearing, Ear Discharge, Ear Pain, Tinnitus, Abnormal Hearing, Disequilibrium, Dizziness, Other Nose/Mouth/Throat: absent: As Per HPI, Epistaxis, Nasal Congestion, Nasal Discharge, Nasal Obstruction, Nasal Trauma, Nose Pain, Post Nasal Drip, Sinus Pain, Sinus Pressure, Bleeding Gums, Change in Voice, Dental Pain, Dry Mouth, Dysphagia, Halitosis, Hoarsness, Lip Swelling, Mouth Lesions, Mouth Pain, Odynophagia, Sore Throat, Throat Swelling, Tongue Swelling, Facial Pain, Neck Pain, Neck Mass, Other - Cardiovascular Cardiovascular: Palpitations - Respiratory Respiratory: absent: As Per HPI, Cough, Dyspnea, Hemoptysis, Dyspnea on Exertion , Wheezing, Snoring, Stridor, Pain on Inspiration, Chest Congestion, Excessive Mucous Production, Change in Mucous Color, Pain with Coughing, Other - Gastrointestinal Gastrointestinal: absent: As Per HPI, Abdominal Pain, Belching, Bloating, Change in Bowel Habits, Change in Stool Character, Coffee Ground Emesis, Constipation, Cramping, Diarrhea, Dyspepsia, Dysphagia, Early Satiety, Excessive Flatus, Fecal Incontinence, Heartburn, Hematemesis, Hematochezia, Loose Stools, Melena, Nausea, Odynophagia, Temesmus, Vomiting, Other - Musculoskeletal Musculoskeletal: absent: As Per HPI, Abnormal Gait, Arthralgias, Atrophy, Back Pain, Deformity, Joint Swelling, Limited Range of Motion, Loss of Height, Muscle Cramps, Muscle Weakness, Myalgias, Neck Pain, Numbness, Radiating Pain into Limb, Stiffness, Tingling, Other - Neurological Neurological: absent: As Per HPI, Abnormal Gait, Abnormal Hearing, Abnormal Movements, Abnormal Speech, Behavioral Changes, Burning Sensations, Confusion, Convulsions, Disequilibrium, Dizziness, Numbness, Focal Weakness, Frequent Falls , Headaches, Lack of Coordination, Loss of Vision, Memory Loss, Paresthesias, Radicular Pain, Restless Legs, Sensory Deficit, Syncope, Tingling, Tremor, Vertigo, Weakness, Other Visual Disturbances, Other Past Patient History - Infectious Disease Hx of Infectious Diseases: None - Past Medical History & Family History Past Medical History?: No - Past Social History Smoking Status: Light Smoker < 10 Cigarettes Daily - MUSCULOSKELETAL/RHEUMATOLOGICAL Hx Falls: No - PSYCHIATRIC Hx Substance Use: No - SURGICAL HISTORY Hx Surgeries: No - ANESTHESIA Hx Anesthesia: No Meds Allergies/Adverse Reactions: Allergies Allergy/AdvReac Type Severity Reaction Status Date / Time No Known Allergies Allergy Unverified 12/24/17 01:20 - Medications Medications: Current Medications Acetaminophen (Tylenol 325mg Tab) 650 mg PO Q6 PRN PRN Reason: Pain, Mild (1-3) Last Admin: 12/26/17 12:13 Dose: 650 mg Enoxaparin Sodium (Lovenox) 40 mg SC DAILY [facility] Last Admin: 12/26/17 09:36 Dose: 40 mg Cefazolin Sodium/Dextrose (Ancef Iv 1 Gm Duplex) 1 gm in 50 mls @ 100 mls/hr IVPB Q8H [facility] PRN Reason: Protocol Last Admin: 12/26/17 18:26 Dose: 100 mls/hr Morphine Sulfate (Morphine) 1 mg IVP Q4H PRN PRN Reason: Pain, severe (8-10) Last Admin: 12/24/17 14:37 Dose: 1 mg Ondansetron HCl (Zofran Inj) 4 mg IVP Q6 PRN PRN Reason: Nausea/Vomiting Oxycodone/Acetaminophen (Percocet 5/325 Mg Tab) 1 tab PO Q4 PRN PRN Reason: Pain, moderate (4-7) Stop: 12/27/17 04:36 Last Admin: 12/25/17 20:18 Dose: 1 tab Physical Exam - Constitutional Appears: Non-toxic - Head Exam Head Exam: NORMAL INSPECTION - Eye Exam Eye Exam: absent: Scleral icterus - ENT Exam ENT Exam: Mucous Membranes Moist - Neck Exam Neck exam: Positive for: Full Rom. Negative for: Lymphadenopathy - Respiratory Exam Respiratory Exam: Clear to Auscultation Bilateral - Cardiovascular Exam Cardiovascular Exam: Irregular Rhythm - GI/Abdominal Exam GI & Abdominal Exam: Normal Bowel Sounds, Soft. absent: Tenderness - Extremities Exam Extremities exam: Negative for: calf tenderness, pedal edema Additional comments: +ruptured Achilles Results - Vital Signs Recent Vital Signs: Last Vital Signs Temp 98.7 F 12/26/17 15:00 Pulse 55 L 12/26/17 15:00 Resp 20 12/26/17 15:00 BP 106/56 L 12/26/17 15:00 Pulse Ox 97 12/26/17 15:00 - Labs Result Diagrams: 12/26/17 08:07 12/26/17 08:07 Labs: Laboratory Results - last 24 hr 12/26/17 12/26/17 08:07 08:07 WBC 5.8 RBC 4.07 L Hgb 12.5 Hct 35.9 MCV 88.1 MCH 30.8 MCHC 34.9 RDW 14.3 Plt Count 137 MPV 10.8 Neut % (Auto) 61.2 Lymph % (Auto) 28.6 Smith % (Auto) 7.5 Eos % (Auto) 1.9 Baso % (Auto) 0.8 Neut # (Auto) 3.5 Lymph # (Auto) 1.6 Smith # (Auto) 0.4 Eos # (Auto) 0.1 Baso # (Auto) 0.0 Sodium 140 Potassium 4.5 Chloride 103 Carbon Dioxide 29 Anion Gap 12 BUN 8 L Creatinine 0.8 Est GFR ( Amer) > 60 Est GFR (Non-Af Amer) > 60 Random Glucose 88 Calcium 8.8 Phosphorus 4.2 Magnesium 2.0 Total Bilirubin 1.0 AST 32 ALT 25 Alkaline Phosphatase 39 Total Protein 5.5 L Albumin 3.8 Globulin 1.8 L Albumin/Globulin Ratio 2.1 Assessment & Plan - Assessment and Plan (Free Text) Assessment: Sinus arrhythmia Ruptured achilles tendon Plan: Patient may go repair of Achilles tendon under general anesthesia with acceptable risk. ECHO - Date & Time Date: 12/26/17 Time: 09:15
[2017-12-26] MEDS: Oxycodone/Acetaminophen 5/325 mg Tab PO PRN (21:58)
[2017-12-27] MEDS: ceFAZolin IV 1 gm in Dextrose 1 GM/50 ML BAG IVPB SCH ×3 (01:49→19:00)
[2017-12-27 06:54] LABS: BASO # 0.1 K/uL (0.0-0.2); EOS # 0.1 K/uL (0.0-0.7); EOS % 2.2 % (0.0-4.0); HEMOGLOBIN 13.6 g/dL (12.0-18.0); LYMPH # 2.1 K/uL (1.0-4.3); LYMPH % 40.3 % (20.0-40.0); MEAN CELL VOLUME 88.1 fL (80.0-94.0); MEAN CORPUSCULAR HEMOGLOBIN 30.2 pg (27.0-31.0); MEAN CORPUSCULAR HGB CONC 34.3 g/dL (33.0-37.0); MEAN PLATELET VOLUME 10.8 fL (7.2-11.7); MONO # 0.4 K/uL (0.0-0.8); MONO % 8.4 % (0.0-10.0); NEUT # 2.5 K/uL (1.8-7.0); NEUT % 48.1 % (50.0-75.0); RBC 4.48 Mil/uL (4.40-5.90); RED CELL DISTRIBUTION WIDTH 14.4 % (11.5-14.5); WHITE BLOOD COUNT 5.2 K/uL (4.8-10.8)
[2017-12-27 08:17] LABS: BLOOD UREA NITROGEN 12 mg/dL (9-20); CALCIUM 9.3 mg/dl (8.6-10.4); GFR AFRICAN-AMERICAN > 60; GFR NON-AFRICAN AMERICAN > 60
[2017-12-27 08:18] LABS: ALB/GLOB RATIO 2.2 (1.0-2.1); ALBUMIN 4.2 g/dL (3.5-5.0); ALT/SGPT 24 U/L (21-72); AST/SGOT 29 U/L (17-59)
--- NOTE | 2017-12-27 10:14 | CP.PCM.PN ---
Subjective - Date & Time of Evaluation Date of Evaluation: 12/27/17 Time of Evaluation: 10:14 - Subjective Subjective: Medicine progress note for Dr. Florin Catalan. Patient seen and evaluated at bedside. Patient in no acute distress. Patient complains he is hungry, hasn't eaten as he is going for surgery for R achilles tendon repair today. Denies chest pain, shortness of breath, abdominal pain, nausea, vomiting, fevers and chills. Objective - Vital Signs/Intake and Output Vital Signs (last 24 hours): Temp Pulse Resp BP Pulse Ox 97.2 F L 63 20 113/60 99 12/27/17 07:00 12/27/17 07:00 12/27/17 07:00 12/27/17 07:00 12/27/17 07:00 - Medications Medications: Current Medications Acetaminophen (Tylenol 325mg Tab) 650 mg PO Q6 PRN PRN Reason: Pain, Mild (1-3) Last Admin: 12/26/17 12:13 Dose: 650 mg Enoxaparin Sodium (Lovenox) 40 mg SC DAILY [facility] Last Admin: 12/26/17 09:36 Dose: 40 mg Cefazolin Sodium/Dextrose (Ancef Iv 1 Gm Duplex) 1 gm in 50 mls @ 100 mls/hr IVPB Q8H [place] DELIA PRN Reason: Protocol Last Admin: 12/27/17 01:49 Dose: 100 mls/hr Morphine Sulfate (Morphine) 1 mg IVP Q4H PRN PRN Reason: Pain, severe (8-10) Last Admin: 12/24/17 14:37 Dose: 1 mg Ondansetron HCl (Zofran Inj) 4 mg IVP Q6 PRN PRN Reason: Nausea/Vomiting - Labs Labs: 12/27/17 06:39 12/27/17 06:39 PT 12.4 SECONDS (9.7-12.2) H 12/24/17 16:53 INR 1.1 12/24/17 16:53 APTT 28 SECONDS (21-34) 12/24/17 16:53 - Constitutional Appears: Well, No Acute Distress - Head Exam Head Exam: ATRAUMATIC, NORMOCEPHALIC - Eye Exam Eye Exam: EOMI - ENT Exam ENT Exam: Mucous Membranes Moist - Respiratory Exam Respiratory Exam: Clear to Ausculation Bilateral. absent: Rales, Rhonchi, Wheezes - Cardiovascular Exam Cardiovascular Exam: Irregular Rhythm, +S1, +S2 - GI/Abdominal Exam GI & Abdominal Exam: Soft, Normal Bowel Sounds. absent: Tenderness - Extremities Exam Additional comments: RLE in splint and bandage; capillary refill less than 2 seconds; can move all toes; sensation intact. LLE: full ROM, non-tender to palpation, no edema. - Neurological Exam Neurological Exam: Alert, Awake - Psychiatric Exam Psychiatric exam: Normal Mood - Skin Skin Exam: Dry, Intact, Warm Assessment and Plan - Assessment and Plan (Free Text) Plan: 22 year old male with right ankle laceration injury, complete right Achilles rupture Right Achilles tendon rupture Dr. Ortega, On Site Soil Evaluator consulted- F/U recommendations Right leg splinted by podiatry team Patient underwent surgery for tendon repair 12/27 Patient-non weight bearing with right lower extremity Preoperative studies: CXR- no active disease. EKG- NSR with premature supraventricular complexes. Repeat EKG showed sinus bradycardia with occasional supraventricular complexes noted INR 1.1 MRI right ankle (12/24/17): complete rupture of Achilles tendon with tendon gap between proximal and distal tendon fragments measures 4.6cm. Fluid and edema with in tendon gap. Small ankle effusion. Flattening of peroneus brevis tendon at level of ankle mortise suggestive for partial split tear. Low grade sprain of deep fibers of deltoid ligament. (see full report) Tylenol 650mg q6 for mild pain, Percocet 5/325mg for moderate pain, Morphine 1mg IV q4 for severe pain (Patient counselled on misuse of opioids) Patient is medically optimized for surgery per Food Supervisor Dr. Bui. Physical therapy recommendations- F/U Right ankle laceration Laceration repaired by podiatry team in ER 12/24/17 Continue cefazolin 1g q8 IVPB per podiatry team Patient reports last tetanus shot 6-7 months ago Sinus arrythmia with bradycardia Food Supervisor Dr. Bui consulted. Patient with no clinical cardiac history or current cardiac symptoms. Patient has father with HTN but otherwise denies family history of cardiac history. Stable vitals otherwise. Patient is medically optimized for surgical procedure per Cardiology. Patient is encouraged to follow up with a primary medical doctor and Food Supervisor for follow up and routine medical management upon discharge. Tobacco use Cessation counseling services Prophylactic measures Zofran 1mg IVP q6 prn Physical therapy for crutch training GI prophylaxis not currently indicated
--- NOTE | 2017-12-27 16:02 | CARD ---
APPROVED REPORT EKG Measurement Heart [id number] <Conclusion> Sinus rhythm with premature supraventricular complexes Otherwise normal ECG
[2017-12-27] MEDS: Saccharomyces Boulardi 250 mg Cap PO SCH (18:00)
[2017-12-27] MEDS ORDERED: Bupivacaine 0.25% 20 ML INJ IJ ONE (18:54)
[2017-12-27] MEDS ORDERED: Propofol 10 mg/ml Inj (20 ML) ONE (18:56)
[2017-12-27] MEDS ORDERED: Midazolam 2 MG/2 ML VIAL ONE (18:56)
[2017-12-27] MEDS ORDERED: Succinylcholine Chloride 20 mg/ml Syr (5 ml) IV ONE (18:56)
[2017-12-27] MEDS ORDERED: Lidocaine Hydrochloride 5 ML INJ ONE (19:26)
[2017-12-27] MEDS ORDERED: Rocuronium 10 mg/ml (10 ml) ONE (19:36)
[2017-12-27] MEDS ORDERED: Esmolol 100 mg/10ml Inj IV ONE (19:50)
[2017-12-27] MEDS ORDERED: Phenylephrine 10 mg/ml Inj ONE (19:51)
[2017-12-27] MEDS ORDERED: Neostigmine Methylsulfate 3mg/3ml Syringe IV ONE (21:21)
--- NOTE | 2017-12-27 21:28 | PCM.SURG1 ---
Surgeon's Initial Post Op Note - Surgeon's Notes Surgeon: Dr. Majo Ortega DPM Sock Drier: Dr. Aleks Ewing PGY-3; Dr. Kylee Catalan PGY-2; Dr. Turner Neal PGY-2 Type of Anesthesia: General LMA, Block Regional Anesthesia Administered By: Dr. Anthony YIN Pre-Operative Diagnosis: Right Achilles Tendon Rupture Operative Findings: See dictation. M: 0 Fiberwire, 4-0 vicryl, 3-0 vicryl; 4-0 Prolene, Arthroflex graft. I: none Post-Operative Diagnosis: Same Operation Performed: Right Raiza's Tendon Repair Specimen/Specimens Removed: none Estimated Blood Loss: EBL {In ML}: 0 Blood Products Given: N/A Drains Used: No Drains Post-Op Condition: Good Date of Surgery/Procedure: 12/27/17 Time of Surgery/Procedure: 21:28
--- NOTE | 2017-12-27 21:42 | PCM.ANESB2 ---
Popliteal Nerve Block - Popliteal Nerve Block Date of Procedure: 12/27/17 Anesthesiologist: zeyad ibarra Procedure Performed: Popliteal Nerve Block Right - Procedure Popliteal Nerve Block: This procedure was explained to the patient that it is for post-operative pain management. Consent was obtained after a thorough discussion with the patient regarding the benefits and possible complications of local anesthetic block of the sciatic nerve at the popliteal level. The patient was brought to the operating room and standard monitors are applied. Time-out was held with the circulating nurse to confirm the correct surgery and the appropriate block. After applying oxygen by nasal cannula and administering IV Sedation, patient's operative leg was gently raised and supported and the groove in between the biceps femoris and vastus lateralis muscles was carefully palpated. The skin approximately 8cm above the popliteal crease was then marked. The ultrasound transducer was then applied to the posterior thigh approximately 8cm above the popliteal crease in the transverse plane and the sciatic nerve before its division was visualized lateral to the popliteal artery and in between the bicep femoris and semimembranosus/semitendinosus muscles. After identification, the lateral portion of the thigh was prepped with Betadine solution three times and Lidocaine 1% was injected subcutaneously for topical anesthesia. At this point, a # 21 gauge Stimuplex insulated 4 inch needle was inserted into pre-marked area and advanced in a perpendicular direction. The needle was inserted above the ultrasound transducer in-plane towards the sciatic nerve in a [id number] direction. Needle advancement was performed carefully under direct ultrasound visualization. After repeated negative aspiration, _5____cc of __.25___ % bupivicaine was injected and this was flowed with _ ____15_ cc of ___.25___% bupvicaine . Under ultrasound guidance the local anesthetics were observed surrounding sciatic nerve . The needle was removed intact and sterile dressing was applied.
[2017-12-27] MEDS ORDERED: Oxycodone/Acetaminophen 5/325 mg Tab PO PRN ×2 (22:00)
[2017-12-27] MEDS: HYDROmorphone 0.5 mg/0.5 ml ISec IVP PRN ×2 (22:01→22:13)
[2017-12-27 23:14] VITALS: RESP 20
[2017-12-28] MEDS: ceFAZolin IV 1 gm in Dextrose 1 GM/50 ML BAG IVPB SCH ×2 (01:15→10:32)
[2017-12-28 07:28] LABS: BASO % 0.4 % (0.0-2.0); EOS % 0.4 % (0.0-4.0); HEMOGLOBIN 12.5 g/dL (12.0-18.0); LYMPH # 2.2 K/uL (1.0-4.3); LYMPH % 23.4 % (20.0-40.0); MEAN CELL VOLUME 88.5 fL (80.0-94.0); MEAN CORPUSCULAR HEMOGLOBIN 30.4 pg (27.0-31.0); MEAN CORPUSCULAR HGB CONC 34.4 g/dL (33.0-37.0); MONO # 0.7 K/uL (0.0-0.8); MONO % 7.8 % (0.0-10.0); NEUT # 6.3 K/uL (1.8-7.0); RBC 4.12 Mil/uL (4.40-5.90); RED CELL DISTRIBUTION WIDTH 14.3 % (11.5-14.5)
[2017-12-28 07:31] LABS: WHITE BLOOD COUNT 9.3 K/uL (4.8-10.8)
[2017-12-28 07:36] LABS: ALB/GLOB RATIO 2.1 (1.0-2.1); ALBUMIN 3.9 g/dL (3.5-5.0); ALT/SGPT 26 U/L (21-72); AST/SGOT 27 U/L (17-59); BLOOD UREA NITROGEN 11 mg/dL (9-20); CALCIUM 8.8 mg/dl (8.6-10.4); GFR AFRICAN-AMERICAN > 60; GFR NON-AFRICAN AMERICAN > 60
--- NOTE | 2017-12-28 07:42 | CP.PCM.PN ---
Subjective - Date & Time of Evaluation Date of Evaluation: 12/28/17 Time of Evaluation: 07:38 - Subjective Subjective: Medicine progress note for Dr. Catalan. Patient seen and evaluated at bedside. Patient went for R Achilles repair yesterday with Dr. Ortega. Patient states he initially had pain after surgery and mild sore throat, but now is well controlled. Denies chest pain, SOB, nausea , vomiting, headache, dizziness, fever, chills, abdominal pain. Objective - Vital Signs/Intake and Output Vital Signs (last 24 hours): Temp Pulse Resp BP Pulse Ox 98.5 F 99 H 20 121/67 99 12/27/17 23:00 12/27/17 23:00 12/27/17 23:00 12/27/17 23:00 12/27/17 23:00 Intake and Output: 12/28/17 12/28/17 06:59 18:59 Intake Total 200 Balance 200 - Medications Medications: Current Medications Acetaminophen (Tylenol 325mg Tab) 650 mg PO Q6 PRN PRN Reason: Pain, Mild (1-3) Last Admin: 12/26/17 12:13 Dose: 650 mg Enoxaparin Sodium (Lovenox) 40 mg SC DAILY [facility] Last Admin: 12/26/17 09:36 Dose: 40 mg Cefazolin Sodium/Dextrose (Ancef Iv 1 Gm Duplex) 1 gm in 50 mls @ 100 mls/hr IVPB Q8H [place] DELIA PRN Reason: Protocol Last Admin: 12/28/17 01:15 Dose: 100 mls/hr Ondansetron HCl (Zofran Inj) 4 mg IVP Q6 PRN PRN Reason: Nausea/Vomiting Oxycodone/Acetaminophen (Percocet 5/325 Mg Tab) 1 tab PO Q4H PRN PRN Reason: Pain, moderate (4-7) Stop: 12/30/17 22:01 Last Admin: 12/28/17 05:56 Dose: 1 tab Oxycodone/Acetaminophen (Percocet 5/325 Mg Tab) 2 tab PO Q4H PRN PRN Reason: Pain, severe (8-10) Stop: 12/30/17 22:01 Saccharomyces Boulardii (Florastor) 250 mg PO BID [facility] Last Admin: 12/27/17 18:00 Dose: Not Given - Labs Labs: 12/28/17 06:38 07/10/18 06:38 PT 12.4 SECONDS (9.7-12.2) H 12/24/17 16:53 INR 1.1 12/24/17 16:53 APTT 28 SECONDS (21-34) 12/24/17 16:53 - Additional Findings Additional findings: - Constitutional Appears: Well, No Acute Distress - Head Exam Head Exam: ATRAUMATIC, NORMOCEPHALIC - Eye Exam Eye Exam: EOMI - ENT Exam ENT Exam: Mucous Membranes Moist - Respiratory Exam Respiratory Exam: Clear to Ausculation Bilateral. absent: Rales, Rhonchi, Wheezes - Cardiovascular Exam Cardiovascular Exam: Irregular Rhythm, +S1, +S2 - GI/Abdominal Exam GI & Abdominal Exam: Soft, Normal Bowel Sounds. absent: Tenderness - Extremities Exam Additional comments: RLE in splint and bandage; capillary refill less than 2 seconds; moves all toes ; sensation intact. LLE: full ROM, non-tender to palpation, no edema. - Neurological Exam Neurological Exam: Alert, Awake - Psychiatric Exam Psychiatric exam: Normal Mood - Skin Skin Exam: Dry, Intact, Warm Assessment and Plan - Assessment and Plan (Free Text) Plan: 22 year old male with right ankle laceration injury, complete right Achilles rupture Right Achilles tendon rupture Dr. Ortega, Business Operations Director consulted- F/U recommendations Right leg splinted by podiatry team Patient underwent surgery for tendon repair 12/27- patient tolerated well Patient-non weight bearing with right lower extremity Preoperative studies: CXR- no active disease. EKG- NSR with premature supraventricular complexes. Repeat EKG showed sinus bradycardia with occasional supraventricular complexes noted. INR 1.1 MRI right ankle (12/24/17): complete rupture of Achilles tendon with tendon gap between proximal and distal tendon fragments measures 4.6cm. Fluid and edema with in tendon gap. Small ankle effusion. Flattening of peroneus brevis tendon at level of ankle mortise suggestive for partial split tear. Low grade sprain of deep fibers of deltoid ligament. (see full report) Tylenol 650mg q6 for mild pain, Percocet 5/325mg for moderate pain, Morphine 1mg IV q4 for severe pain (Patient counselled on misuse of opioids) Patient is medically optimized for surgery per Auto Air Conditioning Mechanic Dr. Bui. Physical therapy recommendations- F/U Right ankle laceration Laceration repaired by podiatry team in ER 12/24/17 Continue cefazolin 1g q8 IVPB per podiatry team Patient reports last tetanus shot 6-7 months ago Sinus arrythmia with bradycardia Auto Air Conditioning Mechanic Dr. Bui consulted. Help appreciated. Patient with no clinical cardiac history or current cardiac symptoms. Patient has father with HTN but otherwise denies family history of cardiac history. Stable vitals otherwise. Patient is medically optimized for surgical procedure per Cardiology. Patient is encouraged to follow up with a primary medical doctor and Auto Air Conditioning Mechanic for follow up and routine medical management upon discharge. Tobacco use Cessation counseling services Prophylactic measures Zofran 1mg IVP q6 prn Physical therapy for crutch training GI prophylaxis not currently indicated
[2017-12-28 08:04] VITALS: BP 112/61; PULSE 67; TEMP 98.1; O2SAT 98
[2017-12-28] MEDS: Saccharomyces Boulardi 250 mg Cap PO SCH (10:32)
--- NOTE | 2017-12-28 15:29 | CP.PCM.PN ---
Subjective - Date & Time of Evaluation Date of Evaluation: 12/28/17 Time of Evaluation: 10:00 - Subjective Subjective: Podiatry Progress note: Dr. Ortega 22 year old male patient was evaluated at bedside 1 day s/p right Raiza's tendon rupture repair. Patient is AAOx3 and appears to be resting comfortably on the bed. Denies of any acute overnight events. Reports that the pain is well controlled. Denies of having recent F/N/V/C/SOB/CP/headache. No other pedal complains at this time. Objective - Vital Signs/Intake and Output Vital Signs (last 24 hours): Temp Pulse Resp BP Pulse Ox 98.1 F 67 20 112/61 98 12/28/17 08:03 12/28/17 08:03 12/28/17 08:03 12/28/17 08:03 12/28/17 08:03 Intake and Output: 12/28/17 12/28/17 06:59 18:59 Intake Total 200 530 Output Total 500 Balance 200 30 - Labs Labs: 12/28/17 06:38 12/28/17 06:38 PT 12.4 SECONDS (9.7-12.2) H 12/24/17 16:53 INR 1.1 12/24/17 16:53 APTT 28 SECONDS (21-34) 12/24/17 16:53 - Constitutional Appears: Well, Non-toxic, No Acute Distress - Extremities Exam Additional comments: Posterior splint in place, Clean dry and intact. no strike through noted - Neurological Exam Neurological Exam: Alert, Awake, Oriented x3 - Psychiatric Exam Psychiatric exam: Normal Affect, Normal Mood Assessment and Plan - Assessment and Plan (Free Text) Assessment: 22 year old male 1 day s/p R Raiza's tendon repair Plan: Patient seen and evaluated Discussed plan with attending Dr. Ortega Labs, vitals and charts reviewed - afebrile Posterior splint - leave intact Educated patient to remain NWB in the splint using crutches Patient is stable from podiatry standpoint F/u with Dr. Ortega in the Podiatry clinic on Wednesday upon discharge Podiatry will continue to follow patient while in-house
--- NOTE | 2017-12-28 20:48 | CP.PCM.DIS ---
Provider - Provider Date of Admission: 12/24/17 13:39 Attending physician: Lois Casey MD Time Spent in preparation of Discharge (in minutes): 45 Hospital Course - Lab Results Lab Results: Most Recent Lab Values WBC 9.3 K/uL (4.8-10.8) D 12/28/17 06:38 RBC 4.12 Mil/uL (4.40-5.90) L 12/28/17 06:38 Hgb 12.5 g/dL (12.0-18.0) 12/28/17 06:38 Hct 36.4 % (35.0-51.0) 12/28/17 06:38 MCV 88.5 fL (80.0-94.0) 12/28/17 06:38 MCH 30.4 pg (27.0-31.0) 12/28/17 06:38 MCHC 34.4 g/dL (33.0-37.0) 12/28/17 06:38 RDW 14.3 % (11.5-14.5) 12/28/17 06:38 Plt Count 193 K/uL (130-400) 12/28/17 06:38 MPV 11.0 fL (7.2-11.7) 12/28/17 06:38 Neut % (Auto) 68.0 % (50.0-75.0) 12/28/17 06:38 Lymph % (Auto) 23.4 % (20.0-40.0) 12/28/17 06:38 Riley % (Auto) 7.8 % (0.0-10.0) 12/28/17 06:38 Eos % (Auto) 0.4 % (0.0-4.0) 12/28/17 06:38 Baso % (Auto) 0.4 % (0.0-2.0) 12/28/17 06:38 Neut # (Auto) 6.3 K/uL (1.8-7.0) 12/28/17 06:38 Lymph # (Auto) 2.2 K/uL (1.0-4.3) 12/28/17 06:38 Riley # (Auto) 0.7 K/uL (0.0-0.8) 12/28/17 06:38 Eos # (Auto) 0.0 K/uL (0.0-0.7) 12/28/17 06:38 Baso # (Auto) 0.0 K/uL (0.0-0.2) 12/28/17 06:38 PT 12.4 SECONDS (9.7-12.2) H 12/24/17 16:53 INR 1.1 12/24/17 16:53 APTT 28 SECONDS (21-34) 12/24/17 16:53 Sodium 141 mmol/L (132-148) 12/28/17 06:38 Potassium 4.7 mmol/L (3.6-5.2) 12/28/17 06:38 Chloride 102 mmol/L (98-107) 12/28/17 06:38 Carbon Dioxide 25 mmol/L (22-30) 12/28/17 06:38 Anion Gap 19 (10-20) 12/28/17 06:38 BUN 11 mg/dL (9-20) 12/28/17 06:38 Creatinine 0.8 mg/dL (0.8-1.5) 12/28/17 06:38 Est GFR ( Amer) > 60 12/28/17 06:38 Est GFR (Non-Af Amer) > 60 12/28/17 06:38 Random Glucose 67 mg/dL (75-110) L 12/28/17 06:38 Calcium 8.8 mg/dl (8.6-10.4) 12/28/17 06:38 Phosphorus 4.2 mg/dL (2.5-4.5) 12/27/17 06:39 Magnesium 2.1 mg/dL (1.6-2.3) 12/27/17 06:39 Total Bilirubin 0.9 mg/dL (0.2-1.3) 12/28/17 06:38 AST 27 U/L (17-59) 12/28/17 06:38 ALT 26 U/L (21-72) 12/28/17 06:38 Alkaline Phosphatase 40 U/L (38-126) 12/28/17 06:38 Total Protein 5.8 g/dL (6.3-8.3) L 12/28/17 06:38 Albumin 3.9 g/dL (3.5-5.0) 12/28/17 06:38 Globulin 1.9 gm/dL (2.2-3.9) L 12/28/17 06:38 Albumin/Globulin Ratio 2.1 (1.0-2.1) 12/28/17 06:38 - Hospital Course Hospital Course: On admission: Patient is a 22 year old male patient who denies past medical history who was brought in by ambulance for an acute right foot/ankle injury. 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 The patient tried to catch it but the lamp struck his foot/medial ankle causing a laceration on impact. There was no loss of consciousness or head trauma. Patient reports he was told he looked pale at the time of injury. At the time of the incident, the pain was described as a 1/10 and has been "achy " since. This feeling starts at the back of the ankle and extends upward to the base of the calf muscle. Patient denies numbness and tingling in his right foot. Patient received morphine at the hospital and is controlling his pain. Patient reports last tetanus was 6-7 months ago given at an urgent care center. Patient was seen by podiatry team in ER for laceration repair of bleeding vessels at laceration site. Hospital course: Patient was admitted and treated for R achilles rupture. An MRI of the R ankle was obtained which shoes complete rupture of Achilles tendon on the R. MRI right ankle (12/24/17): complete rupture of Achilles tendon with tendon gap between proximal and distal tendon fragments measures 4.6cm. Fluid and edema with in tendon gap. Small ankle effusion. Flattening of peroneus brevis tendon at level of ankle mortise suggestive for partial split tear. Low grade sprain of deep fibers of deltoid ligament. (see full report) Dr. Ortega, podiatry was consulted and recommended surgery to repair R achilles tendon. Patient was noted to have a sinus arrhythmia with bradycardia. Dr. Bui, cardiology, was consulted, evaluated patient and recommended patient optimized for surgery. Patient underwent a R Achilles tendon repair with Dr. Ortega under general anesthesia with LMA on 12/27/17. Patient tolerated the procedure well. Patient is stable for discharge at this time. Patient was discharged with a 35 day supply of samples of Eliquis 25 PO daily due to immobilization and smoking history. Patient counselled on increased risk of bleeding. Patient was prescribed Percocet 5/325 for severe pain and counselled on the risk of addiction. Instructions: Please make sure that you do NOT bear weight on the Right Leg until you are cleared to do so by the Podiatry Team. Schedule follow up with the Podiatry Team Dr. Ortega for Wednesday January 10, 2018 by calling the [facility] at [phone]. Please follow additional instructions given to you by the Podiatry Team. This is a brief summary of hospitalization. Please see EMR for full report. Discharge Exam - Head Exam Head Exam: ATRAUMATIC, NORMOCEPHALIC - Eye Exam Eye Exam: EOMI, Normal appearance - ENT Exam ENT Exam: Mucous Membranes Moist - Neck Exam Neck exam: Normal Inspection - Respiratory Exam Respiratory Exam: Clear to PA & Lateral, NORMAL BREATHING PATTERN, UNREMARKABLE. absent: Accessory Muscle Use, Rales, Rhonchi, Wheezes, Respiratory Distress - Cardiovascular Exam Cardiovascular Exam: Irregular Rhythm, +S1, +S2 - GI/Abdominal Exam GI & Abdominal Exam: Normal Bowel Sounds, Soft, Unremarkable. absent: Guarding , Tenderness - Extremities Exam Additional comments: R lower extremity in splint and bandage. Normal capillary refill, sensation intact, moves all toes. LLE: full ROM, non-tender, no edema. - Neurological Exam Neurological exam: Alert, Oriented x3 - Psychiatric Exam Psychiatric exam: Normal Mood - Skin Skin Exam: Dry, Normal Color, Warm Discharge Plan - Follow Up Plan Condition: FAIR Disposition: HOME/ ROUTINE Instructions: Tendon Repair, How to Use Crutches, Achilles Tendon Rupture (DC) , Tendon Laceration (DC), Weight-Bearing Restrictions, Going Up and Down Curbs or Stairs With a Walker or Crutches, Managing Pain After Surgery Additional Instructions: Please make sure that you do NOT bear weight on the Right Leg until you are cleared to do so by the Podiatry Team. Schedule follow up with the Podiatry Team Dr. Ortega for Wednesday January 10, 2018 by calling the [facility] at [phone]. Please follow additional instructions given to you by the Podiatry Team. Keaton Catalan D.O. Referrals: [facility] at [facility] [Outside] Non [facility] Provider, [Non-Staff] -
--- NOTE | 2018-01-02 09:35 | CARD ---
APPROVED REPORT Date of service: 12/25/2017 EKG Measurement Heart [id number] <Conclusion> Sinus bradycardia with marked sinus arrhythmia Otherwise normal ECG
--- NOTE | 2018-01-02 21:12 | PCM.OP ---
Operative Report - Operative Report Date of Surgery/Procedure: 12/27/17 Time of Surgery/Procedure: 21:30 Surgeon: Dr. Ortega Journeyman Electrician: Dr. Aleks Ewing PGY-3; Dr. Kylee Catalan PGY-2; Dr. Turner Neal PGY-2 Anesthesia/Sedation: General LMA, Block Regional Pre-Operative Diagnosis: Pre-Operative Diagnoses: #1. Right lower extremity Achilles tendon complete rupture Post-Operative Diagnosis: same Indication for Surgery: Indications: The patient is a 22 year-old M with the above diagnoses. The patient has exhausted conservative treatment at this time and now requests surgical intervention. The patient signed the consent after careful explanation of risks, benefits, complication and alternatives for surgical procedure. No guarantees were given nor implied. 2 grams of ancef IV were given to the pt hour prior to the procedure. NPO status was confirmed prior to taking pt to the OR. Operative Findings: Preparation: Patient was given right lower extremity Popliteal regional block by Anesthesiologist before the surgery. The patient was brought to the operating room and placed on the operating room table in Prone position. A well-padded pneumatic Thigh tourniquet was placed to the patient's Right lower extremity. Once local anesthesia was achieved, the Right Lower extremity was then prepped and draped in usual sterile manner. Esmarch was utilized to exsanguinate the patient's Right foot. Pneumatic ankle tourniquet was then inflated to 350 mmHg and procedure began. Procedure/Operation Description: PROCEDURE #1: Repair of Right lower extremity Achilles tendon. Attention was directed to the posterior aspect of right lower extremity at the distal aspect of Achilles tendon and tendon insertion. Utilizing #15 blade, approximately 6 cm linear longitudinal incision was made staying central to the Achilles tendon. The incision was deepened through the subcutaneous tissues using sharp and blunt dissection. Care was taken to identify and retract all vital neurovascular structures. All bleeders were cauterized and ligated as necessary. Next, Utilizing #15 blade, longitudinal incision was made on the paratenon and which was retracted to medially and laterally. A complete, transverse rupture of the Achilles tendon was noted approximately 5cm proximal to the insertion into calcaneus. Next Utilizing #15 blade and curette, ruptured ends of the Achilles tendon were gently debrided of all unhealthy non-viable tissues and tendiopathic tissues. The surgical site was irrigated with copious amount of sterile normal saline. Next, the two ends of the Achilles tendon were reapproximated with 0 Fiberwire in Krackow suturing technique. Excellent end to end approximation is noted to the Achilles tendon. Next, 0 fiberwire was used again to reinforce the Achilles tendon rupture site utilizing modified tanvir technique. Excellent integrity and firm reapproximation of the Achilles tendon was confirmed intra-operatively with passive range of motion of right ankle. The surgical site was irrigated with copious amount of sterile normal saline. Next, the paratenon of Achilles tendon was reapproximated with 4-0 vicryl. Next, Graftkacket graft with size 5cm x 3cm was applied to the Achilles tendon, and was fixated firmly with #4-0 vicryl. subcutaneous tissue was reapproximated with 4-0 vicryl and skin was reapproximated with 4-0 Nylon in horizontal mattress suture technique. The surgical area was infiltrated with 10ml of 0.5% Marcaine plain. The right lower extremity was dressed with saline soaked x4 and DSD. Posterior splint was applied was applied to the right lower extremity. The attending was present during the entire case. Estimated Blood Loss: less than 3 mL Complications: none Discharge & Condition: Postoperative Condition: The patient tolerated the anesthesia and procedure well and was escorted to the recovery room with vital signs stable and neurovascular status intact to the Right foot. The patient received popliteal regional block by the anesthesiologist after the case. This patient will follow up with Dr. Ortega.
== END 2017-12-28 14:00 | disposition home or self-care (01) | DRG 502 ==
LOC: SUPCPDRO 01:11 → C.ER 01:11 → C.5S 03:25 → OBSVTOIN 13:39 → C.5S 22:41 → C.6T 22:45
PROVIDERS: ADMIT Internal Medicine; ATTEND Internal Medicine
PROC: 0LQN0ZZ Repair Right Lower Leg Tendon, Open Approach (ICD-10-PCS; principal; 2017-12-27 16:45)
DX: S86.011A Strain of right Achilles tendon, initial encounter (principal); S91.011A Laceration without foreign body, right ankle, initial encounter; I49.8 Other specified cardiac arrhythmias; W22.8XXA Striking against or struck by other objects, initial encounter; F17.210 Nicotine dependence, cigarettes, uncomplicated